=== PATIENT | female | born 1955 | race Caucasian/White ===

== ENCOUNTER → 2016-11-25 | Outpatient (CLI) | payer MEDICARE, OTHER ==
[~2016-11-25] MED LIST: ASPIRIN 81M81 MG/TA2 PO; COZAAR; DESYREL 50MG50 MG PO; DIFLUCAN150 MG PO; DUONEB 3 MG/3 ML3 ML IH; ESCITALOPRAM; FISH OIL500 MG PO; FLEXERIL 1010 MG/TAB PO; FORTAMET1000 MG PO; FUROSEMIDE; GLUCOPHAGE1000 MG PO; GLUCOPHAGE500 MG/TAB PO; GRALISE600 MG; GRALISE600 MG PO; HUMALOG PEN100 U/ML SQ; HYZAAR 12.5 MG-1 TAB PO; IPRATROPIUM BROM3 M1 IH; K-DUR 10 MEQ T10 MEQ PO; K-LOR CON; KLONOPIN 0.5MG0.5 MG PO; KLOR-CON 1010 MEQ PO; LANTUS100 U/ML SQ; LASIX 20MG TABL20 MG PO; LEVAQUIN 5500 MG/TA1 PO; LEXAPRO 10MG10 MG PO; LEXAPRO 5MG5 MG PO; MAG-OX 400400 MG/TAB PO; METFORMIN500 MG PO; MOTRIN 400400 MG/TAB PO; NICORETTE4 MG PO; NORCO 325 MG-101 TAB PO; NORCO 325 MG-51 TAB PO; NORCO 325 MG-7.1 TAB PO; NORVASC 5MG5 MG/TAB PO; OMEGA-3 FISH1000 MG PO; OMEGA-3 FISH1200 MG PO; ONGLYZA5 MG PO; PREDNISONE10 MG PO; PREDNISONE20 MG PO; PRILOSEC 10MG10 MG PO; PROAIR HFA0.09 MG/AC IH; RT ADVAIR 128 DISKUS IH; RT ADVAIR 228 DISKUS IH; RT SPIRIVA18 MCG IH; SINGULAIR 110 MG/TAB PO; TAMIFLU 75MG75 MG PO; TRICOR145 MG PO; TRICOR48 MG PO; TRILIPIX 135MG; TUSS PO; ULTRAM 50MG TAB50 MG PO; VENTOLIN0.09 MG IH; WELLBUTRIN 75MG75 MG PO; ZITHROMAX 250M250 MG PO; ZOCOR 20MG20 MG PO
== END ==
LOC: COL.RAD 12:45
DX: M47.816 Spondylosis without myelopathy or radiculopathy, lumbar region (principal); G89.29 Other chronic pain

== ENCOUNTER → 2017-01-10 | Outpatient (CLI) | payer MEDICARE, OTHER | LOC: MHCPAIN 11:02 | DX: G89.29 Other chronic pain (principal); M47.27 Other spondylosis with radiculopathy, lumbosacral region; M53.3 Sacrococcygeal disorders, not elsewhere classified; F17.210 Nicotine dependence, cigarettes, uncomplicated | CPT/HCPCS: G0463 ==

== ENCOUNTER 2017-03-23 16:15 | Outpatient (RCR) | payer MEDICARE, OTHER | END 2017-03-31 09:19 | disposition home or self-care (01) | LOC: WSPT 16:15 | DX: M47.27 Other spondylosis with radiculopathy, lumbosacral region (principal); M53.3 Sacrococcygeal disorders, not elsewhere classified | CPT/HCPCS: G8978-GP; G8979-GP; G8980-GP ==

== ENCOUNTER 2018-02-09 15:16 | Inpatient (IN) | payer MEDICARE, OTHER ==
[~2018-02-09] VITALS: Ht 154.9 cm; Wt 96.2 kg
[~2018-02-09 15:16] MED LIST changes: +NEURONTIN600 MG/TAB PO
[2018-02-09] MEDS ORDERED: INSULIN HUMA100 U/ML SQ (16:23)
[2018-02-09] MEDS ORDERED: DOXYCYCLINE 10100 MG (16:35)
[2018-02-09] MEDS ORDERED: PREDNISONE20 MG PO (16:36)
[2018-02-09 17:12] VITALS: BP 146/62; PULSE 76; TEMP 98.7
[2018-02-09 17:20] VITALS: BP 146/62; PULSE 77; TEMP 98.7
[2018-02-09 17:29] LABS: BASO # 0.1 (0.0-0.2); BASO % 0.4 % (0.0-2.0); EOS # 0.1 (0.0-0.7); EOS % 0.6 % (0-4.0); GRAN # 9.5 (1.4-6.5); GRAN % 83.3 % (42.2-75.2); HEMATOCRIT 40.7 % (37.0-47.0); LYMPH # 1.5 (1.2-3.4); LYMPH % 13.5 % (20.0-51.0); MEAN CELL VOLUME 82 fl (80.0-100.0); MEAN CORPUSCULAR HEMOGLOBIN 28 pg (27.0-31.0); MEAN CORPUSCULAR HGB CONC 34 g/dl (33.0-37.0); MEAN PLATELET VOLUME 10.8 fl (7.4-10.4); MONO # 0.1 (0.1-0.6); MONO % 1.2 % (1.7-9.3); PLATELET COUNT 258 K/mm3 (130-400); RED BLOOD COUNT 4.95 M/mm3 (4.10-5.30)
[2018-02-09 17:39] LABS: BILIRUBIN,TOTAL 0.4 mg/dL (0.0-1.0); CALCIUM 9.3 mg/dL (8.4-10.2); CREATININE, serum 0.57 mg/dL (0.52-1.25); POTASSIUM 4.5 mmol/L (3.4-5.0); TOTAL PROTEIN 7.3 gm/dL (6.4-8.2)
[2018-02-09 20:14] VITALS: BP 153/61; PULSE 92; TEMP 98
[2018-02-09 22:22] LABS: COLLECTION METHOD CATHETER
[2018-02-09 22:37] LABS: MUCOUS Present /lpf; PH 7 (5-8); URINE APPEARANCE Clear; URINE BACTERIA None Seen /hpf; URINE BILIRUBIN Negative (NEGATIVE); URINE BLOOD Negative (NEGATIVE); URINE COLOR Yellow; URINE GLUCOSE 3+ (NEGATIVE); URINE KETONE Negative (NEGATIVE); URINE LEUKOCYTE ESTERASE Negative (NEGATIVE); URINE NITRATE Negative (NEGATIVE); URINE PROTEIN(semi-quant) Negative (NEGATIVE); URINE RBC 0-2 /hpf; URINE UROBILINOGEN Negative (NEGATIVE)
[2018-02-09 23:23] VITALS: BP 143/64; PULSE 84; TEMP 97.9
[2018-02-09 23:50] VITALS: BP 110/39; PULSE 85
[2018-02-10 03:51] VITALS: BP 130/68; PULSE 81
[2018-02-10 07:41] VITALS: BP 142/69; PULSE 75; TEMP 97.9
[2018-02-10 07:53] LABS: MEAN CELL VOLUME 83 fl (80.0-100.0); MEAN CORPUSCULAR HEMOGLOBIN 28 pg (27.0-31.0); MEAN CORPUSCULAR HGB CONC 34 g/dl (33.0-37.0); MEAN PLATELET VOLUME 10.9 fl (7.4-10.4); PLATELET COUNT 269 K/mm3 (130-400); RED BLOOD COUNT 4.57 M/mm3 (4.10-5.30); REDCELL DISTRIBUTION WIDTH-CV 12.9 % (11.5-14.5)
[2018-02-10 08:01] LABS: CREATININE, serum 0.52 mg/dL (0.52-1.25); POTASSIUM 4.3 mmol/L (3.4-5.0)
[2018-02-10 09:32] LABS: BAND 4 % (0-10); LYMPHOCYTE 11 % (20.0-51.0); NEUTROPHILS 85 % (42.0-75.2); PLATELET ESTIMATE NORMAL (NORMAL)
[2018-02-10 11:00] VITALS: BP 142/64; PULSE 96; TEMP 98.2
[2018-02-10 15:37] VITALS: BP 130/57; PULSE 92; TEMP 97.4
[2018-02-10 20:32] VITALS: BP 126/68; PULSE 98; TEMP 98.1
[2018-02-10 23:13] VITALS: BP 125/59; PULSE 82; TEMP 98.3
[2018-02-11 03:28] VITALS: BP 135/66; PULSE 81; TEMP 97.5
[2018-02-11 06:27] LABS: BASO % 0.1 % (0.0-2.0); GRAN # 12.7 (1.4-6.5); GRAN % 89.5 % (42.2-75.2); LYMPH # 1.1 (1.2-3.4); LYMPH % 7.6 % (20.0-51.0); MEAN CELL VOLUME 85 fl (80.0-100.0); MEAN CORPUSCULAR HEMOGLOBIN 28 pg (27.0-31.0); MEAN CORPUSCULAR HGB CONC 34 g/dl (33.0-37.0); MEAN PLATELET VOLUME 11.2 fl (7.4-10.4); MONO # 0.3 (0.1-0.6); MONO % 1.9 % (1.7-9.3); PLATELET COUNT 242 K/mm3 (130-400); RED BLOOD COUNT 4.23 M/mm3 (4.10-5.30); REDCELL DISTRIBUTION WIDTH-CV 13.1 % (11.5-14.5)
[2018-02-11 06:31] LABS: HEMATOCRIT 35.8 % (37.0-47.0)
[2018-02-11 06:39] LABS: CALCIUM 9.1 mg/dL (8.4-10.2); CREATININE, serum 0.5 mg/dL (0.52-1.25); POTASSIUM 3.8 mmol/L (3.4-5.0)
[2018-02-11 07:04] VITALS: BP 135/58; PULSE 79; TEMP 98.1
[2018-02-11 11:05] VITALS: BP 143/59; PULSE 96; TEMP 98.5
[2018-02-11 15:21] VITALS: BP 136/62; PULSE 88; TEMP 98.7
[2018-02-11 20:57] VITALS: BP 135/52; PULSE 94; TEMP 98.5
[2018-02-12] VITALS (7 sets, daily range): BP systolic 140–150; BP diastolic 57–72; PULSE 74–98; TEMP 97.8–98.2
[2018-02-12 07:46] LABS: GRAN # 9.8 (1.4-6.5); GRAN % 86.6 % (42.2-75.2); HEMATOCRIT 36.5 % (37.0-47.0); HEMOGLOBIN 12.3 g/dl (12.5-16.0); MEAN CELL VOLUME 86 fl (80.0-100.0); MEAN CORPUSCULAR HEMOGLOBIN 29 pg (27.0-31.0); MEAN CORPUSCULAR HGB CONC 34 g/dl (33.0-37.0); MEAN PLATELET VOLUME 11.1 fl (7.4-10.4); MONO # 0.4 (0.1-0.6); MONO % 3.3 % (1.7-9.3); PLATELET COUNT 233 K/mm3 (130-400); RED BLOOD COUNT 4.27 M/mm3 (4.10-5.30); REDCELL DISTRIBUTION WIDTH-CV 13.2 % (11.5-14.5)
[2018-02-12 08:01] LABS: CALCIUM 9.1 mg/dL (8.4-10.2); CREATININE, serum 0.58 mg/dL (0.52-1.25); POTASSIUM 4.3 mmol/L (3.4-5.0)
[2018-02-13 00:43] VITALS: BP 155/69; PULSE 96; TEMP 97.8
[2018-02-13 04:01] VITALS: BP 139/70; PULSE 89; TEMP 98.3
[2018-02-13 06:05] LABS: BASO % 0.1 % (0.0-2.0); EOS % 0.1 % (0-4.0); GRAN # 6.7 (1.4-6.5); GRAN % 62.3 % (42.2-75.2); HEMATOCRIT 39.1 % (37.0-47.0); LYMPH # 3.1 (1.2-3.4); LYMPH % 28.6 % (20.0-51.0); MEAN CELL VOLUME 85 fl (80.0-100.0); MEAN CORPUSCULAR HEMOGLOBIN 28 pg (27.0-31.0); MEAN CORPUSCULAR HGB CONC 33 g/dl (33.0-37.0); MEAN PLATELET VOLUME 11.2 fl (7.4-10.4); MONO # 0.8 (0.1-0.6); MONO % 7.2 % (1.7-9.3); PLATELET COUNT 236 K/mm3 (130-400); RED BLOOD COUNT 4.58 M/mm3 (4.10-5.30); REDCELL DISTRIBUTION WIDTH-CV 12.9 % (11.5-14.5)
[2018-02-13 06:19] LABS: CALCIUM 9.1 mg/dL (8.4-10.2); CREATININE, serum 0.72 mg/dL (0.52-1.25); POTASSIUM 3.1 mmol/L (3.4-5.0)
[2018-02-13 07:07] VITALS: BP 148/55; PULSE 76; TEMP 98.4
[2018-02-13] MEDS ORDERED: TESSALON P100 MG/CAP PO (09:57)
[2018-02-13] MEDS ORDERED: PREDNISONE10 MG PO (10:01)
== END 2018-02-13 11:02 | disposition home or self-care (01) | DRG 189 ==
LOC: MEDICAL 15:16
PROVIDERS: Hospitalist; Physician Assistant
DX: J96.01 Acute respiratory failure with hypoxia (principal); J44.1 Chronic obstructive pulmonary disease with (acute) exacerbation; E87.1 Hypo-osmolality and hyponatremia; Z23 Encounter for immunization; G80.9 Cerebral palsy, unspecified; I10 Essential (primary) hypertension; E78.5 Hyperlipidemia, unspecified; Z79.4 Long term (current) use of insulin; F17.210 Nicotine dependence, cigarettes, uncomplicated; E11.65 Type 2 diabetes mellitus with hyperglycemia; F41.8 Other specified anxiety disorders; E87.6 Hypokalemia
CPT/HCPCS: 99222-AI; 99233-AI; A4216; J0692; J1650; J1815; J1956; J2920; J7030; J7512

== ENCOUNTER 2018-02-27 20:03 | Emergency (ER) | payer MEDICARE, OTHER ==
[~2018-02-27] VITALS: Ht 154.9 cm; Wt 97.3 kg
[~2018-02-27 20:03] MED LIST changes: +DOXYCYCLINE 10100 MG; +INSULIN HUMA100 U/ML SQ; +TESSALON P100 MG/CAP PO
[2018-02-27 20:40] LABS: BASO % 0.8 % (0.0-2.0); EOS # 0.3 (0.0-0.7); GRAN # 3.1 (1.4-6.5); GRAN % 61.3 % (42.2-75.2); HEMATOCRIT 42.8 % (37.0-47.0); HEMOGLOBIN 14.7 g/dl (12.5-16.0); LYMPH # 1.2 (1.2-3.4); LYMPH % 24.7 % (20.0-51.0); MEAN CELL VOLUME 84 fl (80.0-100.0); MEAN CORPUSCULAR HEMOGLOBIN 29 pg (27.0-31.0); MEAN CORPUSCULAR HGB CONC 34 g/dl (33.0-37.0); MONO # 0.3 (0.1-0.6); MONO % 6.6 % (1.7-9.3); PLATELET COUNT 230 K/mm3 (130-400); RED BLOOD COUNT 5.08 M/mm3 (4.10-5.30); REDCELL DISTRIBUTION WIDTH-CV 13.8 % (11.5-14.5)
[2018-02-27 20:49] LABS: ALBUMIN 3.9 gm/dL (3.5-5.0); BILIRUBIN,TOTAL 0.5 mg/dL (0.0-1.0); CALCIUM 8.9 mg/dL (8.4-10.2); CREATININE, serum 0.67 mg/dL (0.52-1.25); POTASSIUM 4.2 mmol/L (3.4-5.0); TOTAL PROTEIN 6.9 gm/dL (6.4-8.2)
[2018-02-27] MEDS ORDERED: PREDNISONE20 MG PO (21:18)
[2018-02-27] MEDS ORDERED: ZITHROMAX Z PA250 MG PO (21:18)
[2018-02-27 21:30] VITALS: BP 140/77; PULSE 87; TEMP 98.5
== END 2018-02-27 21:49 | disposition home or self-care (01) ==
LOC: COL.ER 20:03
PROVIDERS: Family Medicine
DX: J44.9 Chronic obstructive pulmonary disease, unspecified (principal); I10 Essential (primary) hypertension; E11.9 Type 2 diabetes mellitus without complications; Z79.4 Long term (current) use of insulin; Z79.82 Long term (current) use of aspirin; Z79.891 Long term (current) use of opiate analgesic
CPT/HCPCS: J2930

== ENCOUNTER 2018-11-27 10:12 | Emergency (ER) | payer MEDICARE, OTHER ==
[2005-05-03 11:30] VITALS: BP 183/96
[~2018-11-27] VITALS: Ht 154.9 cm; Wt 92.7 kg
[~2018-11-27 10:12] MED LIST changes: +ZITHROMAX Z PA250 MG PO
[2018-11-27 10:17] VITALS: TEMP 98.6
[2018-11-27 12:06] VITALS: BP 160/82; PULSE 88
== END 2018-11-27 12:06 | disposition home or self-care (01) ==
LOC: COL.ER 10:12
DX: S80.02XA Contusion of left knee, initial encounter (principal); E11.9 Type 2 diabetes mellitus without complications; I10 Essential (primary) hypertension; E03.9 Hypothyroidism, unspecified; J44.9 Chronic obstructive pulmonary disease, unspecified; Z79.4 Long term (current) use of insulin; Z79.82 Long term (current) use of aspirin; F17.210 Nicotine dependence, cigarettes, uncomplicated; W01.0XXA Fall on same level from slipping, tripping and stumbling without subsequent striking against object, initial encounter; Y92.009 Unspecified place in unspecified non-institutional (private) residence as the place of occurrence of the external cause
CPT/HCPCS: J1885; L1846

== ENCOUNTER 2019-03-23 14:50 | Inpatient (IN) | payer MEDICARE, OTHER ==
[~2019-03-23] VITALS: Ht 154.9 cm; Wt 95.5 kg
[2019-03-23 15:58] LABS: ALBUMIN 4.1 gm/dL (3.5-5.0); BILIRUBIN,TOTAL 0.7 mg/dL (0.0-1.0); CALCIUM 8.9 mg/dL (8.4-10.2); CREATININE, serum 0.59 (0.52-1.25); POTASSIUM 3.9 mmol/L (3.4-5.0); TOTAL PROTEIN 7.1 gm/dL (6.4-8.2)
[2019-03-23 16:05] LABS: BASO % 0.6 % (0.0-2.0); EOS # 0.2 (0.0-0.7); EOS % 3.9 % (0-4.0); GRAN # 3.3 (1.4-6.5); GRAN % 60.7 % (42.2-75.2); HEMATOCRIT 39.6 % (37.0-47.0); HEMOGLOBIN 13.8 g/dl (12.5-16.0); LYMPH # 1.5 (1.2-3.4); LYMPH % 28.4 % (20.0-51.0); MEAN CELL VOLUME 82 fl (80.0-100.0); MEAN CORPUSCULAR HEMOGLOBIN 29 pg (27.0-31.0); MEAN CORPUSCULAR HGB CONC 35 g/dl (33.0-37.0); MEAN PLATELET VOLUME 11.2 fl (7.4-10.4); MONO # 0.3 (0.1-0.6); MONO % 6.2 % (1.7-9.3); PLATELET COUNT 207 K/mm3 (130-400); RED BLOOD COUNT 4.84 M/mm3 (4.10-5.30); REDCELL DISTRIBUTION WIDTH-CV 13.3 % (11.5-14.5)
[2019-03-23 16:12] LABS: TROPONIN-I 0.128 ng/mL (0.000-0.035)
[2019-03-23 16:42] LABS: PROTHROMBIN TIME 11.7 SECONDS (9.7-12.8)
[2019-03-23 16:45] LABS: PARTIAL THROMBOPLASTIN TIME 27.9 SECONDS (26.0-37.0)
--- NOTE | 2019-03-23 20:11 | NUR ---
Arrived to the unit via stretcher; able to transfer to icu bed with stand by assist only. Attached to all monitors. Patient alert and oriented and cooperative with staff. Reporting rib pain due to frequent cough. Hospitalist notified of patient arrival; reports will come now to see patient.
[2019-03-23 20:30] VITALS: BP 161/88; PULSE 84; TEMP 98.4
[2019-03-23 21:01] VITALS: BP 161/88; PULSE 84; TEMP 98.4
[2019-03-23] MEDS ORDERED: K-DUR 10 MEQ T10 MEQ PO (21:01)
[2019-03-23] MEDS ORDERED: KLONOPIN 1MG1 MG PO (21:02)
[2019-03-23] MEDS ORDERED: MAG-OX 400400 MG/TAB PO (21:02)
[2019-03-23] MEDS ORDERED: ZOCOR 40MG40 MG PO (21:04)
[2019-03-23] MEDS ORDERED: RT ADVAIR 228 DISKUS IH (21:09)
[2019-03-23] MEDS ORDERED: WELLBUTRIN SR100 M1 PO (21:10)
[2019-03-23] MEDS ORDERED: RT SPIRIVA18 MCG IH (21:11)
[2019-03-23] MEDS ORDERED: LEXAPRO20 MG PO (21:11)
[2019-03-23 23:45] VITALS: BP 168/86; PULSE 102; TEMP 98.4
[2019-03-24 00:36] LABS: CALCIUM 8.9 mg/dL (8.4-10.2); CREATININE, serum 0.4 (0.52-1.25); POTASSIUM 3.8 mmol/L (3.4-5.0)
--- NOTE | 2019-03-24 02:08 | NUR ---
Keira resting in bed with eyes shut; no concerns at this time.
[2019-03-24 02:38] LABS: COLLECTION METHOD CLEAN CATCH
[2019-03-24 02:48] LABS: PH 7 (5-8); SQUAMOUS EPITHELIAL 0-2 /hpf; URINE APPEARANCE Clear; URINE BACTERIA None Seen /hpf; URINE BILIRUBIN Negative (NEGATIVE); URINE BLOOD Negative (NEGATIVE); URINE COLOR Yellow; URINE GLUCOSE 3+ (NEGATIVE); URINE KETONE Negative (NEGATIVE); URINE LEUKOCYTE ESTERASE Negative (NEGATIVE); URINE NITRATE Negative (NEGATIVE); URINE PROTEIN(semi-quant) Negative (NEGATIVE); URINE RBC 0-2 /hpf
[2019-03-24 04:15] VITALS: BP 154/77; PULSE 106; TEMP 98.4
[2019-03-24 04:35] LABS: BASO % 0.2 % (0.0-2.0); EOS % 0.2 % (0-4.0); GRAN # 5.7 (1.4-6.5); HEMATOCRIT 38.9 % (37.0-47.0); HEMOGLOBIN 13.3 g/dl (12.5-16.0); LYMPH # 0.6 (1.2-3.4); LYMPH % 9.5 % (20.0-51.0); MEAN CELL VOLUME 83 fl (80.0-100.0); MEAN CORPUSCULAR HEMOGLOBIN 28 pg (27.0-31.0); MEAN CORPUSCULAR HGB CONC 34 g/dl (33.0-37.0); MEAN PLATELET VOLUME 11.1 fl (7.4-10.4); MONO % 0.6 % (1.7-9.3); PLATELET COUNT 203 K/mm3 (130-400); RED BLOOD COUNT 4.68 M/mm3 (4.10-5.30); REDCELL DISTRIBUTION WIDTH-CV 13.6 % (11.5-14.5)
[2019-03-24 04:44] LABS: CREATININE, serum 0.44 (0.52-1.25); POTASSIUM 3.5 mmol/L (3.4-5.0)
--- NOTE | 2019-03-24 07:26 | NUR ---
Report given to QUETA Jose. Patient care transfered.
[2019-03-24 08:00] VITALS: BP 165/76; PULSE 105; TEMP 97.8
[2019-03-24 12:00] VITALS: BP 168/80; PULSE 78; TEMP 97.9
--- NOTE | 2019-03-24 17:41 | NUR ---
Patient arrived to the floor at this time. Alert and oriented. O2 flowing at 2L NC. IV fluids running, NS @ 125 ml/hr. Patient states that she is very comfortable and has no pain except for when she coughs it hurts her throat and her abdomen. Denies chest pain. States she is short of breath which is not normal for her, she thinks it is because she got sick. Droplet precautions are in place for +RSV. Stated she was very hungry, a snack was provided prior to her dinner tray. She gave me a 10pack of Nicoret gum that she had in her purse and requested for me to put it with her other that were brought in. I am placing a med label on it and puttingit in her bin in the med room. No further needs were expressed at this time. Call light is in reach.
[2019-03-24 19:13] VITALS: BP 148/78; PULSE 82; TEMP 98.4
--- NOTE | 2019-03-24 20:10 | NUR ---
Shift assessment complete. Pt resting in bed, awake, a&o, cooperative c cares. Pt denies pain or other c/o at this time. IV patent, IVF infusing per orders. Tele in place. O2 per NC. Pt denies needs. Call light in reach, will continue to monitor.
--- NOTE | 2019-03-24 23:10 | NUR ---
Pt c/o "it hurts when I breathe". Pt noted to have aching, pleuritic type chest pain across lower ribs, exacerbated by cough. Pain does not radiate. PRN tramadol admin. Pt denies further needs. Call light in reach, will continue to monitor.
[2019-03-24 23:50] VITALS: BP 156/72; PULSE 91; TEMP 98.2
[2019-03-25] VITALS (11 sets, daily range): BP systolic 138–171; BP diastolic 56–86; PULSE 65–97; TEMP 97.4–98.1
[2019-03-25 04:20] LABS: BASO % 0.1 % (0.0-2.0); GRAN # 12.6 (1.4-6.5); GRAN % 87.6 % (42.2-75.2); HEMATOCRIT 37.7 % (37.0-47.0); HEMOGLOBIN 12.8 g/dl (12.5-16.0); LYMPH # 1.3 (1.2-3.4); LYMPH % 8.7 % (20.0-51.0); MEAN CELL VOLUME 84 fl (80.0-100.0); MEAN CORPUSCULAR HEMOGLOBIN 28 pg (27.0-31.0); MEAN CORPUSCULAR HGB CONC 34 g/dl (33.0-37.0); MEAN PLATELET VOLUME 11.1 fl (7.4-10.4); MONO # 0.5 (0.1-0.6); MONO % 3.2 % (1.7-9.3); PLATELET COUNT 253 K/mm3 (130-400); REDCELL DISTRIBUTION WIDTH-CV 13.6 % (11.5-14.5)
[2019-03-25 04:26] LABS: CALCIUM 9.1 mg/dL (8.4-10.2); CREATININE, serum 0.51 (0.52-1.25); MAGNESIUM 1.5 mg/dL (1.6-2.3); POTASSIUM 3.9 mmol/L (3.4-5.0)
--- NOTE | 2019-03-25 07:22 | NUR ---
Pre and Post not completed this morning. Patient is RSV positive. Patient's spirometry will not be accurate at this time. Imtiaz Haley, PHYSICIAN REPRESENTATIVE
--- NOTE | 2019-03-25 09:09 | NUR ---
Patient off the floor at this time for dialysis
--- NOTE | 2019-03-25 11:05 | NUR ---
Patient has returned from [facility]. AM medications given at this time. BS checked and given insulin as per orders. Patient is alert and oriented x 3. Skin w/d. Color pale pink. Patient reports a dry non-productive cough at this time. Lung essentially clear. Resp even/unlabored. HR strong/regular. Abd soft with bowel sounds x 4 quads. PPP. No pedal edema. Patient states that she is a little short of air since the stress test. Is having no chest pain. Cardiology reported that patient is low risk and to restart his diet.
--- NOTE | 2019-03-25 14:45 | NUR ---
JEFFREY met with the patient to discuss discharge plan. The patient lives alone in [place]. She states that her granddaughter is staying with her temporary and that her daughter, Rika (ph#[phone]), lives next door. She reports independence with ADLs and does not have any assistive devices. She states that she has home oxygen from [facility], but that it was discontinued by her PCP. She states that she has not yet returned it back to [facility]. The patient's PCP is Dr. Odilia Hendrix and she receives her medications at [facility]. She reports no difficulties obtaining her meds. The patient does not have advanced directives, but she was interested in obtaining a form for DPOA-HC. JEFFREY provided. The patient plans to return home upon discharge. The patient is currently requiring 2 liters of oxygen. SW to continue to monitor.
--- NOTE | 2019-03-25 22:30 | NUR ---
Initial shift assessment done- denies pain- states feeling somewhat better- o2 at 2L/nc, wants to increase dose of nicorette gum-- Tele on, Droplet Isolation-- Erin KHOURY called for blood sugar 407, also about nicotine gum-- orders obtained.
--- NOTE | 2019-03-26 01:00 | NUR ---
Blood sugar 321 after the 20 units of Novolog sq--- Erin KHOURY called - order for 10 units of regular insulin IV at this time-- Pt also requesting Ultram and cough medicine- given at this time as ordered
--- NOTE | 2019-03-26 02:10 | NUR ---
Blood sugar 88- requesting a snack- crackers given
[2019-03-26 02:11] VITALS: BP 144/60; PULSE 66; TEMP 98.5
--- NOTE | 2019-03-26 02:17 | NUR ---
Blood sugar 88-- pt requesting a snack at this time-- given
--- NOTE | 2019-03-26 06:41 | NUR ---
Blood sugar 150,s this morning, VSS, on droplet precautions- no requests
[2019-03-26 06:49] LABS: HEMOGLOBIN 12.1 g/dl (12.5-16.0); MEAN CELL VOLUME 87 fl (80.0-100.0); MEAN CORPUSCULAR HEMOGLOBIN 29 pg (27.0-31.0); MEAN CORPUSCULAR HGB CONC 34 g/dl (33.0-37.0); MEAN PLATELET VOLUME 11.4 fl (7.4-10.4); PLATELET COUNT 223 K/mm3 (130-400); RED BLOOD COUNT 4.16 M/mm3 (4.10-5.30); REDCELL DISTRIBUTION WIDTH-CV 13.6 % (11.5-14.5)
[2019-03-26 07:00] LABS: CALCIUM 8.7 mg/dL (8.4-10.2); CREATININE, serum 0.64 (0.52-1.25); MAGNESIUM 1.8 mg/dL (1.6-2.3); POTASSIUM 3.7 mmol/L (3.4-5.0)
[2019-03-26 07:18] LABS: EOSINOPHIL 1 % (0-4); LYMPHOCYTE 25 % (20.0-51.0); NEUTROPHILS 69 % (42.0-75.2); PLATELET ESTIMATE NORMAL (NORMAL)
[2019-03-26 08:21] VITALS: BP 153/71; PULSE 66; TEMP 98.3
[2019-03-26] MEDS ORDERED: LOPRESSOR 550 MG/TAB PO (09:06)
[2019-03-26] MEDS ORDERED: CLARITIN 1010 MG/TAB PO (09:08)
[2019-03-26] MEDS ORDERED: DOXYCYCLINE 10100 MG PO (09:08)
[2019-03-26] MEDS ORDERED: RT SPIRIVA18 MCG IH (09:09)
[2019-03-26] MEDS ORDERED: IPRATROPIUM BROM3 M1 IH (09:09)
[2019-03-26] MEDS ORDERED: NEURONTIN600 MG/TAB PO (09:09)
[2019-03-26] MEDS ORDERED: PROAIR HFA0.09 MG/AC IH (09:10)
[2019-03-26] MEDS ORDERED: TRICOR145 MG PO (09:10)
[2019-03-26] MEDS ORDERED: HYZAAR 12.5 MG-1 TAB PO (09:11)
[2019-03-26] MEDS ORDERED: NORVASC 5MG5 MG/TAB PO (09:11)
[2019-03-26] MEDS ORDERED: ZOCOR 40MG40 MG PO (09:11)
[2019-03-26] MEDS ORDERED: K-DUR 10 MEQ T10 MEQ PO (09:12)
[2019-03-26] MEDS ORDERED: WELLBUTRIN SR100 M1 PO (09:12)
[2019-03-26] MEDS ORDERED: LEXAPRO20 MG PO (09:12)
[2019-03-26] MEDS ORDERED: TESSALON P100 MG/CAP PO (09:12)
[2019-03-26] MEDS ORDERED: RT ADVAIR 228 DISKUS IH (09:13)
[2019-03-26] MEDS ORDERED: GLUCOPHAGE500 MG/TAB PO (09:13)
[2019-03-26] MEDS ORDERED: FLONASE NASAL S16 GM NS (09:13)
[2019-03-26] MEDS ORDERED: GLUCOSE TEST ST1 DEV MC (09:15)
[2019-03-26] MEDS ORDERED: PREDNISONE20 MG PO (09:15)
[2019-03-26] MEDS ORDERED: INSULIN HUMA100 U/ML SQ (09:16)
[2019-03-26] MEDS ORDERED: LANTUS100 U/ML SQ (09:16)
[2019-03-26 09:27] LABS: CHOLESTEROL RISK RATIO 8.2
--- NOTE | 2019-03-26 09:36 | NUR ---
JEFFREY attended clinical rounds. The patient is to discharge back home today, 03/26. An exercise oximetry has been ordered. JEFFREY presented and explained the IM form to the patient. The patient verbalized understanding, signed, and she was provided a copy. SW awaiting the exercise oximetry.
[2019-03-26] MEDS ORDERED: NICORETTE4 MG PO (11:31)
--- NOTE | 2019-03-26 13:53 | NUR ---
The patient did not qualify for oxygen. JEFFREY met with the patient to update. The patient then informed SW that she has a CPAP, but that it is missing parts. JEFFREY contacted the patient's CPAP supplier, [facility]. Stephon, with [facility], reports that he will contact the patient to get it fixed. The patient then informed SW that she received a phone call from [facility] and that [facility] does not have the parts for her CPAP. They state that they would need to order a new CPAP and that they would need orders from her pulmonoligist, Dr. Jimenez. JEFFREY contacted Dr. Jimenez's office. The receptionist nurse reports that they have not seen the patient in four years and that they would need to see her, before they could reorder the CPAP. They also state that they are unable to schedule an appointment until the patient pays her outstanding balance of $140.00. The receptionist nurse provided SW the phone number that the patient would need to call to pay the bill. JEFFREY informed the patient and provided her with the phone number to pay the outstanding bill. The patient reports that she will give them a call, once she gets paid. JEFFREY also contacted Latoya at [facility] [employer] to inform of the discontinued oxgen and for them to come leaf size picker her supplies. Latoya requsted an order for the discontinued oxygen. JEFFREY notified Nurse Practitioner, Sharmaine. JEFFREY faxed the discontinued oxygen order to [facility]. The patient had no other questions or concerns for JEFFREY. No additional needs at this time.
--- NOTE | 2019-03-26 14:15 | NUR ---
Pt discharged to home, discussed discharge packet and answered all questions, escorted to entrance, Pt left with family via private transportation.
== END 2019-03-26 14:15 | disposition home or self-care (01) | DRG 190 ==
LOC: COL.ER 14:50 → ICU 18:59 → MEDICAL 03-24 18:59
PROVIDERS: Emergency Medicine; Hospitalist; Nurse Practitioner Family; ADMIT Family Medicine
DX: J44.1 Chronic obstructive pulmonary disease with (acute) exacerbation (principal); J96.21 Acute and chronic respiratory failure with hypoxia; I21.A1 Myocardial infarction type 2; J06.9 Acute upper respiratory infection, unspecified; B97.4 Respiratory syncytial virus as the cause of diseases classified elsewhere; H66.93 Otitis media, unspecified, bilateral; E11.65 Type 2 diabetes mellitus with hyperglycemia; I10 Essential (primary) hypertension; E78.5 Hyperlipidemia, unspecified; R07.89 Other chest pain; E83.42 Hypomagnesemia; F41.9 Anxiety disorder, unspecified; F32.9 Major depressive disorder, single episode, unspecified; Z91.14 Patient's other noncompliance with medication regimen
CPT/HCPCS: 99222-AI; 99231-AI; 99239; A9500; J0360; J1650; J1815; J2785; J2920; J3010; J3475; J7030; J7512; Q9967

== ENCOUNTER → 2020-02-12 | Outpatient (REF) ==
[~2020-02-12] MED LIST changes: +CLARITIN 1010 MG/TAB PO; +DOXYCYCLINE 10100 MG PO; +FLONASE NASAL S16 GM NS; +GLUCOSE TEST ST1 DEV MC; +KLONOPIN 1MG1 MG PO; +LEXAPRO20 MG PO; +LOPRESSOR 550 MG/TAB PO; +WELLBUTRIN SR100 M1 PO; +ZOCOR 40MG40 MG PO
== END ==
LOC: ZLAB.WCH 09:42
DX: Z01.89 Encounter for other specified special examinations (principal)

== ENCOUNTER → 2020-08-18 | Outpatient (REF) | LOC: ZLAB.WCH 09:36 | DX: Z01.89 Encounter for other specified special examinations (principal) ==

== ENCOUNTER 2020-10-05 13:54 | Emergency (ER) | payer MEDICARE, OTHER ==
[~2020-10-05] VITALS: Ht 154.9 cm; Wt 97.3 kg
[2020-10-05 14:18] VITALS: TEMP 98.4
[2020-10-05 15:23] LABS: BASO % 0.4 % (0.0-2.0); EOS # 0.1 (0.0-0.7); GRAN # 5.2 (1.4-6.5); GRAN % 63.8 % (42.2-75.2); HEMATOCRIT 41.5 % (37.0-47.0); LYMPH # 2.4 (1.2-3.4); LYMPH % 29.9 % (20.0-51.0); MEAN CELL VOLUME 81 fl (80.0-100.0); MEAN CORPUSCULAR HEMOGLOBIN 29 pg (27.0-31.0); MEAN CORPUSCULAR HGB CONC 36 g/dl (33.0-37.0); MEAN PLATELET VOLUME 10.7 fl (7.4-10.4); MONO # 0.4 (0.1-0.6); MONO % 4.7 % (1.7-9.3); PLATELET COUNT 233 K/mm3 (130-400); RED BLOOD COUNT 5.15 M/mm3 (4.10-5.30); REDCELL DISTRIBUTION WIDTH-CV 13.1 % (11.5-14.5)
[2020-10-05 15:34] LABS: ALANINE AMINOTRANSFERASE 12 U/L (4-34); ALBUMIN 4.3 gm/dL (3.5-5.0); ALKALINE PHOSPHATASE 78 U/L (50-136); ANION GAP 7 mmol/L (7-16); AST,SGOT 17 U/L (15-37); BILIRUBIN,TOTAL 0.5 mg/dL (0.0-1.0); BLOOD UREA NITROGEN 8 mg/dL (7-17); CALCIUM 9.1 mg/dL (8.4-10.2); CARBON DIOXIDE 28 mmol/L (22-30); CHLORIDE 100 mmol/L (98-107); CREATININE, serum 0.47 (0.52-1.25); GLUCOSE 192 mg/dL (74-106); POTASSIUM 3.6 mmol/L (3.4-5.0); SODIUM 136 mmol/L (137-145); TOTAL PROTEIN 7.3 gm/dL (6.4-8.2)
[2020-10-05 15:35] LABS: ACETAMINOPHEN < 10 ug/mL (10-30); ALCOHOL(ethanol),MEDICAL < 10 mg/dL; SALICYLATE < 1.0 mg/dL
[2020-10-05 16:04] LABS: TSH w REFLEX 0.866 uIU/mL (0.465-4.680)
[2020-10-05 16:09] LABS: COLLECTION METHOD CLEAN CATCH
[2020-10-05 16:12] LABS: TRICYCLIC ANTIDEPRESS URINE NEGATIVE
[2020-10-05 16:16] LABS: MUCOUS Present /lpf; PH 6 (5-8); SQUAMOUS EPITHELIAL 0-2 /hpf; URINE APPEARANCE Cloudy; URINE BACTERIA Rare /hpf; URINE BILIRUBIN Negative (NEGATIVE); URINE BLOOD Negative (NEGATIVE); URINE COLOR Yellow; URINE GLUCOSE 3+ (NEGATIVE); URINE KETONE Negative (NEGATIVE); URINE LEUKOCYTE ESTERASE Negative (NEGATIVE); URINE NITRATE Negative (NEGATIVE); URINE PROTEIN(semi-quant) 1+ (NEGATIVE); URINE RBC 0-2 /hpf; URINE UROBILINOGEN Negative (NEGATIVE)
[2020-10-05 18:25] VITALS: BP 161/98; PULSE 83
== END 2020-10-05 18:25 | disposition home or self-care (01) ==
LOC: COL.ER 13:54
PROVIDERS: Nurse Practitioner
DX: F32.9 Major depressive disorder, single episode, unspecified (principal); I10 Essential (primary) hypertension; E11.9 Type 2 diabetes mellitus without complications; E78.5 Hyperlipidemia, unspecified; Z79.4 Long term (current) use of insulin; Z79.899 Other long term (current) drug therapy

== ENCOUNTER → 2023-03-29 | Outpatient (CLI) | payer MEDICARE, OTHER | LOC: COL.RAD 12:35 | DX: Z12.2 Encounter for screening for malignant neoplasm of respiratory organs (principal); Z87.891 Personal history of nicotine dependence ==